=== PATIENT | male | born 1955 | race Caucasian/White ===

== ENCOUNTER → 2017-02-02 | Day surgery (SDC) | payer BC ==
[~2017-02-02] VITALS: Ht 180.3 cm; Wt 84.0 kg
[~2017-02-02] MED LIST: AMOXICILLIN500 MG PO; ASPIRIN LO-DOSE81 MG PO; BACTRIM DS1 TAB PO; MULTI VITAMIN1 EACH PO; NORCO 5-325 TA1 EACH PO; TYLENOL WITH C1 EACH PO
--- NOTE | ~2017-02-02 | OR ---
PATIENT'S NAME: BRIAN PALMA [facility] AGE: 61 Y [address] ROOM: [place] [id number] LOCATION: [facility] [place] ADMIT DATE: 02/02/2017 OR/Procedure Report DISCHARGE DATE: FAMILY PHYSICIAN: JOSEPHINE VENCES MD ATTENDING PHYSICIAN: Edward Cesar SURGEON: Edward Cesar MD INVESTMENT STRATEGIST: DATE OF PROCEDURE: 02/02/2017 PREOPERATIVE DIAGNOSIS: Benign prostatic hypertrophy with urinary retention. POSTOPERATIVE DIAGNOSIS: Benign prostatic hypertrophy with urinary retention. PROCEDURE PERFORMED: Button transurethral resection of the prostate. ANESTHESIA: General. COMPLICATIONS: None. INDICATIONS FOR PROCEDURE: The patient is a 61-year-old male with prostatic enlargement with urinary retention. DETAILS OF PROCEDURE: After informed consent was obtained, the patient was taken to the operating room. A general anesthetic was applied and he was placed in a dorsal lithotomy position. The groin area was prepped and draped in normal sterile fashion. The resectoscope sheath was introduced into the urethra and bladder without difficulty. Then, the resectoscope was introduced. Using the button electrode, resection was begun at the floor of the bladder neck to the verumontanum. I then resected the lateral lobe tissue followed by the anterior tissue. Following this, the bladder was empty and I continued resecting down to the crossing fibers. At the end of the procedure, the patient had a widely patent prostatic urethra and bladder neck. A 20- [place] Bejarano catheter was then placed. The patient tolerated the procedure well and was transferred to the recovery room in good condition. MD RAYMOND SEN/jeremyl /[id number] PATIENT'S NAME: BRIAN PALMA [facility] AGE: 61 Y [address] ROOM: [place] [id number] LOCATION: [facility] [place] ADMIT DATE: 02/02/2017 OR/Procedure Report DISCHARGE DATE: FAMILY PHYSICIAN: JOSEPHINE VENCES MD ATTENDING PHYSICIAN: Edward Cesar CC: Josephine Vences MD d: 02/04/17 1459 t: 02/06/17 1454, OPERATIVE SUMMARY
[2017-02-02 11:44] LABS: BASOPHIL % 0.5 %; EOSINOPHIL # 0.1 K/uL (0.0-0.5); EOSINOPHIL % 2.4 %; HEMATOCRIT 39.5 % (37.0-53.0); HEMOGLOBIN 13.3 g/dL (12.0-17.0); IMMATURE GRANULOCYTE % 0.2 %; LYMPHOCYTE # 1.4 K/uL (0.8-4.0); LYMPHOCYTE % 24.3 %; MCH 28.6 pg (27.0-34.0); MCHC 33.7 gm/dL (32.0-36.5); MCV 84.9 fl (83.0-98.0); MONOCYTE # 0.5 K/uL (0.0-1.0); MONOCYTE % 7.9 %; MPV 9.7 fl (9.4-12.4); NEUTROPHIL # (ANC) 3.8 K/uL (1.4-9.0); NEUTROPHIL % 64.7 %; NRBC % 0 /100WBC (0-0.00); PLATELET COUNT 326 K/uL (150-450); RBC 4.65 M/uL (4.00-6.00); RDW-CV 12.3 % (11.9-14.6); WBC 5.8 K/uL (4.0-11.0)
[2017-02-02 12:01] LABS: ALBUMIN 3.7 gm/dL (3.5-5.0); ALK PHOS 79 IU/L (33-138); ALT 28 IU/L (12-78); ANION GAP 12.3 (10.0-19.0); AST 27 IU/L (10-40); BLOOD UREA NITROGEN 22 mg/dL (6-24); CALCIUM 8.7 mg/dL (8.5-10.5); CHLORIDE 106 mMol/L (96-110); CO2 27 mMol/L (22-32); CREATININE 0.9 mg/dL (0.6-1.3); ESTIMATED GFR (MDRD EQUATION) > 60; POTASSIUM 4.3 mMol/L (3.7-5.1); SODIUM 141 mMol/L (135-145); TOTAL BILIRUBIN 0.6 mg/dL (0.0-1.5); TOTAL PROTEIN 7.2 g/dL (6.0-8.4)
== END ==
LOC: GPOC 01-29 16:00 → GSDC 11:05 → GPOC 16:00
PROVIDERS: Urology
PROC: 0VT08ZZ Resection of Prostate, Via Natural or Artificial Opening Endoscopic (ICD-10-PCS; principal; 2017-02-02)
DX: N40.1 Benign prostatic hyperplasia with lower urinary tract symptoms (principal); R33.8 Other retention of urine; Z79.899 Other long term (current) drug therapy; Z79.82 Long term (current) use of aspirin; Z79.891 Long term (current) use of opiate analgesic
CPT/HCPCS: J1100; J1956; J2001; J2250; J2405; J7120